=== PATIENT | male | born 1965 | race Caucasian/White ===

== ENCOUNTER 2024-11-14 10:12 | Outpatient (CLI) | payer OTHER ==
[2024-11-14 12:20] LABS: #Basophils 0.05 10x3/uL (0.0-0.2); %Basophils 0.8 % (0.0-1.0); %Eosinophils 3.2 % (0.0-10.0); %Lymphocytes 36.6 % (21.0-51.0); %Monocytes 9.3 % (0.0-10.0); %Neutrophils 49.8 % (42.0-75.0); Hematocrit 47.6 % (42.0-52.0); Hemoglobin 15.5 g/dL (14.0-18.0); Mean Corpuscular HGB CONC 32.6 g/dL (32.0-36.0); Mean Corpuscular Hemoglobin 27.1 pg (27.0-31.0); Mean Corpuscular Volume 83.1 fL (78.0-98.0); Mean Platelet Volume 11.8 fL (7.4-10.4); Platelet Count 196 10x3/uL (130-400); RBC Distribution Width 14.2 % (11.5-14.5); Red Blood Cell (RBC) Count 5.73 mill/uL (4.70-6.10)
[2024-11-14 12:41] LABS: Anion Gap 14 mmol/L (10-20); BUN (Urea Nitrogen) 14 mg/dL (8.4-25.7); Calc. Creatinine Clearance 0 mL/min (70-130); Calcium 9.6 mg/dL (7.8-10.44); Carbon Dioxide 26 mmol/L (22-29); Chloride 103 mmol/L (98-107); Estimated GFR 73; Glucose 138 mg/dL (70-105); Potassium 4.2 mmol/L (3.5-5.1); Sodium 139 mmol/L (136-145)
== END 2024-11-14 10:13 | disposition home or self-care (01) ==
LOC: LABBT 10:12
PROVIDERS: ATTEND Orthopaedic Surgery
DX: Z01.818 Encounter for other preprocedural examination (principal); M67.922 Unspecified disorder of synovium and tendon, left upper arm
CPT/HCPCS: 80048; 85025; 93005; 93010